=== PATIENT | female | born 1980 | race Caucasian/White ===

== ENCOUNTER → 2016-12-22 | Outpatient (CLI) | payer BC | END | disposition home or self-care (01) | LOC: MRI 13:03 | PROVIDERS: ATTEND Internal Medicine Geriatric Medicine | DX: S83.242A Other tear of medial meniscus, current injury, left knee, initial encounter (principal); M25.462 Effusion, left knee; X58.XXXA Exposure to other specified factors, initial encounter; Y93.89 Activity, other specified; Y92.89 Other specified places as the place of occurrence of the external cause; Y99.8 Other external cause status | CPT/HCPCS: 73721 ==

== ENCOUNTER → 2017-04-23 | Outpatient (CLI) | payer BC ==
[2017-04-23 11:29] LABS: BASOPHILS % 0.4 % (0.0-2.0); EOSINOPHILS % 0.9 % (0.0-5.0); HEMATOCRIT. 37.5 % (36.0-48.0); HEMOGLOBIN. 12.9 g/dL (12.0-16.0); LYMPHOCYTES % 38.8 % (20.0-50.0); MEAN CORPUSCULAR HEMOGLOBIN 30.5 pg (28.0-32.0); MEAN CORPUSCULAR VOLUME 88.6 fL (81.0-99.0); MEAN PLATELET VOLUME 7.4 fl (7.4-10.4); NEUTROPHILS % 51.9 % (40.0-76.0); PLATELET 235 x1000/uL (130-400); RED BLOOD CELL COUNT 4.23 mill/uL (4.2-5.4)
[2017-04-23 11:38] LABS: PARTIAL THROMBOPLASTIN TIME 30.6 sec (24.0-34.0); PROTHROMBIN TIME 10.3 sec
[2017-04-23 11:44] LABS: CARBON DIOXIDE 31 mEq/L (21-32); CHLORIDE 104 mEq/L (98-107); HDL CHOLESTEROL 61 mg/dL (40-59); LDL CHOLESTEROL 125 mg/dL (5-100)
[2017-04-23 12:08] LABS: CLARITY URINE CLEAR (CLEAR); COLOR URINE YELLOW (YELLOW); GLUCOSE URINE NEGATIVE (NEGATIVE); KETONES URINE NEGATIVE (NEGATIVE); LEUKOCYTE ESTERASE URINE NEGATIVE (NEGATIVE); NITRITE URINE NEGATIVE (NEGATIVE); OCCULT BLOOD URINE NEGATIVE (NEGATIVE); PROTEIN URINE NEGATIVE (NEGATIVE); SPECIFIC GRAVITY URINE 1.023 (1.005-1.030); UROBILINOGEN URINE 0.2 E.U./dL (0.2-1.0)
== END | disposition home or self-care (01) ==
LOC: RAD 08:05
PROVIDERS: ATTEND Internal Medicine Geriatric Medicine
DX: Z01.812 Encounter for preprocedural laboratory examination (principal); N39.0 Urinary tract infection, site not specified; E78.5 Hyperlipidemia, unspecified
CPT/HCPCS: 36415; 71020; 80053; 80061; 81003; 85025; 85610; 85730; 87086

== ENCOUNTER 2017-05-01 05:13 | Day surgery (SDC) | payer BC ==
[~2017-05-01] VITALS: Ht 157.5 cm; Wt 81.6 kg
[~2017-05-01 05:13] MED LIST: LACTATED RINGERS 1,000 ML IV SCH
[2017-05-01] MEDS ORDERED: FAMOTIDINE 20MG/2ML VIAL IV ONE (06:10)
[2017-05-01] MEDS ORDERED: NORMAL SALINE 0.9% 10 ML SYR ONE ×2 (06:28→06:51)
[2017-05-01] MEDS ORDERED: EPINEPHRINE 1:1000 1 MG/ML AMP ONE (06:28)
[2017-05-01] MEDS ORDERED: BACITRACIN 50,000 UNITS/VIAL ONE (06:28)
[2017-05-01] MEDS ORDERED: BUPIVACAINE/EPINEPH/PF 0.25%/0.0005 10ML ONE ×2 (06:28→07:06)
[2017-05-01] MEDS ORDERED: FAMOTIDINE 20MG/2ML VIAL IV NR (06:30)
[2017-05-01 07:10] LABS: UCG SCREEN NEGATIVE
[2017-05-01] MEDS ORDERED: MIDAZOLAM HCL 2 MG/2 ML VIAL ONE (07:19)
[2017-05-01] MEDS ORDERED: FENTANYL CITRATE/PF 50MCG/ML 2ML VIAL ONE (07:20)
[2017-05-01] MEDS ORDERED: PROPOFOL 10MG/ML 100ML 100 ML IV ONE (07:24)
[2017-05-01] MEDS ORDERED: DEXAMETHASONE 4MG/ML 1ML VIAL ONE ×2 (07:48→08:17)
[2017-05-01] MEDS ORDERED: ONDANSETRON HCL 4MG/2ML VIAL ONE (07:49)
[2017-05-01] MEDS ORDERED: SODIUM CHLORIDE 0.9% 1,000 ML IV SCH (08:14)
[2017-05-01] MEDS ORDERED: HYDROMORPHONE HCL/PF 2MG/ML CPJ IV PRN (08:15)
[2017-05-01] MEDS ORDERED: ONDANSETRON HCL 4MG/2ML VIAL IV PRN (08:15)
== END 2017-05-01 14:00 | disposition home or self-care (01) ==
LOC: OR 05:13
PROVIDERS: ATTEND Orthopaedic Surgery Sports Medicine
DX: S83.242A Other tear of medial meniscus, current injury, left knee, initial encounter (principal); M67.52 Plica syndrome, left knee; X58.XXXA Exposure to other specified factors, initial encounter; Y93.9 Activity, unspecified; Y92.89 Other specified places as the place of occurrence of the external cause; Y99.9 Unspecified external cause status; E66.3 Overweight; Z88.8 Allergy status to other drugs, medicaments and biological substances
CPT/HCPCS: 29881; 81025; 88304; 88311; 97161; A4216; J0171; J1100; J2250; J2405; J2704; J3010; J3490; J7040; J7120; L1830

== ENCOUNTER → 2017-08-20 | Outpatient (CLI) | payer BC | END | disposition home or self-care (01) | LOC: RAD 13:02 | PROVIDERS: ATTEND Orthopaedic Surgery Sports Medicine | DX: S83.242A Other tear of medial meniscus, current injury, left knee, initial encounter (principal); S83.519A Sprain of anterior cruciate ligament of unspecified knee, initial encounter; X58.XXXA Exposure to other specified factors, initial encounter; Y93.89 Activity, other specified; Y92.89 Other specified places as the place of occurrence of the external cause; Y99.8 Other external cause status | CPT/HCPCS: 73721 ==

== ENCOUNTER → 2018-01-31 | Outpatient (CLI) | payer BC ==
[2018-01-31 16:26] LABS: B-HCG QUANTITATIVE < 1 mIU/mL (<3)
== END | disposition home or self-care (01) ==
LOC: LAB 15:47
PROVIDERS: ATTEND Obstetrics & Gynecology Obstetrics
DX: N91.3 Primary oligomenorrhea (principal)
CPT/HCPCS: 36415; 84146; 84443; 84702

== ENCOUNTER → 2018-06-05 | Outpatient (CLI) | payer BC ==
[2018-06-05 16:23] LABS: CLARITY URINE CLEAR (CLEAR); COLOR URINE YELLOW (YELLOW); KETONES URINE NEGATIVE (NEGATIVE); LEUKOCYTE ESTERASE URINE NEGATIVE (NEGATIVE); NITRITE URINE NEGATIVE (NEGATIVE); OCCULT BLOOD URINE TRACE (NEGATIVE); PH URINE 7.5 (4.5-8.0); PROTEIN URINE NEGATIVE (NEGATIVE); SPECIFIC GRAVITY URINE 1.025 (1.005-1.030); UROBILINOGEN URINE 0.2 E.U./dL (0.2-1.0)
[2018-06-05 16:24] LABS: BASOPHILS % 0.5 % (0.0-2.0); EOSINOPHILS % 1.2 % (0.0-5.0); HEMATOCRIT. 36.9 % (36.0-48.0); HEMOGLOBIN. 12.8 g/dL (12.0-16.0); LYMPHOCYTES % 33.5 % (20.0-50.0); MEAN CORPUSCULAR HEMOGLOBIN 30.8 pg (28.0-32.0); MEAN PLATELET VOLUME 7.7 fl (7.4-10.4); MONOCYTES % 6.9 % (2.0-8.0); NEUTROPHILS % 57.9 % (40.0-76.0); PLATELET 265 x1000/uL (130-400); RED BLOOD CELL COUNT 4.15 mill/uL (4.2-5.4); RED CELL DISTRIBUTION WIDTH 12.8 % (11.6-14.6)
[2018-06-05 16:27] LABS: CHLORIDE 105 mEq/L (98-107)
[2018-06-05 16:35] LABS: HCG SCREEN NEGATIVE; LDL CHOLESTEROL 151 mg/dL (5-100)
[2018-06-05 16:36] LABS: HDL CHOLESTEROL 53 mg/dL (40-59); TOTAL IRON BINDING CAPACITY 309 ug/dL (250-450)
[2018-06-05 16:40] LABS: B-HCG QUANTITATIVE < 1 mIU/mL (<3)
[2018-06-05 16:56] LABS: FERRITIN 26 ng/mL (10-291)
[2018-06-05 17:05] LABS: VITAMIN B12 SERUM 833 pg/mL (211-911)
== END | disposition home or self-care (01) ==
LOC: LAB 15:37
PROVIDERS: ATTEND Internal Medicine Geriatric Medicine
DX: Z32.00 Encounter for pregnancy test, result unknown (principal); N39.0 Urinary tract infection, site not specified; E78.5 Hyperlipidemia, unspecified
CPT/HCPCS: 36415; 80053; 80061; 81003; 82607; 82728; 83036; 83540; 83550; 84443; 84702; 84703; 85025; 86592; 87086

== ENCOUNTER → 2018-10-03 | Outpatient (CLI) | payer OTHER | END | disposition home or self-care (01) | LOC: MRI 07:19 | PROVIDERS: ATTEND Emergency Medicine | DX: S39.012A Strain of muscle, fascia and tendon of lower back, initial encounter (principal); S29.012A Strain of muscle and tendon of back wall of thorax, initial encounter; X58.XXXA Exposure to other specified factors, initial encounter; Y93.89 Activity, other specified; Y92.89 Other specified places as the place of occurrence of the external cause; Y99.8 Other external cause status | CPT/HCPCS: 72146; 72148 ==